=== PATIENT | female | born 1960 | race Two or more races ===

== ENCOUNTER 2025-01-13 15:32 | Outpatient (CLI) | payer OTHER | END 2025-01-13 15:36 | disposition home or self-care (01) | LOC: SONOGRAMA 15:32 | PROVIDERS: ATTEND Pathology Anatomic Pathology | DX: D34 Benign neoplasm of thyroid gland (principal); E07.89 Other specified disorders of thyroid; E04.9 Nontoxic goiter, unspecified ==